=== PATIENT | male | born 1945 | race Caucasian/White ===

== ENCOUNTER → 2016-05-07 | Outpatient (CLI) | payer MEDICARE, MEDICAID ==
[~2016-05-07] MED LIST: ALBU2.5V7 INH; BACL10TA PO; BUDE0.5A6 AEROSOL; CALC-52 PO; CHOL200026 PO; IPRA0.2S52 AEROSOL; LEVE500T9 PO; PRED20TA PO
--- NOTE | 2016-05-07 11:05 | STEVAL ---
Eval Subjective and History Date/Time of Eval DATE: 05/07/16 TIME: 10:35 Medical Diagnosis MODIFIED BARIUM SWALLOW STUDY FOR OTHER DYSPHAGIA R13.19 Treatment Order: Assessment, Dev./Imp. tx plan Orientations: x 3, Cooperative Primary Complaint: OTHER DYSPHAGIA R13.19 Pain: No Date of Onset of Primary Com: 05/07/2016 Prior History of This Problem: Yes (THE LAST THREE MONTHS) Patient's Goals: "TO FIGURE OUT WHY I CAN'T GET MY MUCOUS OUT" Significant Past Medical Hx: PMH OBTAINED FROM PATIENTS VERBAL REPORT. HE STATES THAT HE HAS HX OF EMPHYSEMA WHICH REQUIRES 02 PER NC. HE STATES HE IS TYPICALLY ON 3L. PATIENT STATES HE HAS COPD. DENIES T2DM, HEART PROBLEMS, HTN, NEUROLOGICAL IMPAIRMENTS Medical History Form Reviewed: Yes Residence Type: Private home/apartment Lives With: Spouse Prior Functional Status: PATIENT REPORTS THAT HE IS HAVING "TROUBLE SWALLOWING". REPORTS THAT THREE MONTHS AGO HIS INHALERS STOPPED WORKING AND "IT'S ALL BEEN DOWN HILL SINCE THEN." PATIENT REPORTS THAT HE IS HAVING DIFFICULTY TAKING MEDICATIONS THEY GET "STUCK" AND ALSO REPORTS THAT THE ENT STATES HIS VOCAL CORDS ARE "INFLAMED". PATIENTS LARGEST C/O IS THAT HE IS UNABLE TO COUGH UP MUCOUS. Education Comment AUTHORIZATION REPRESENTATIVE EDUCATED PATIENT ON REASONING OF EVALUATION, AND FOLLOWING THE RESULTS. PATIENT VERBALIZED UNDERSTANDING. Subjective and History Comment: PREETHI TRANSFERRED HIMSELF TO THE IMAGING ROOM AND INTO THE HAUSTED CHAIR INDEPENDENTLY. HE WAS ON 1L OF 02 PER NC- CONTINUOUSLY. HE HAD NO ACUTE C/O PAIN OR FATIGUE. Modified Barium Swallow Lateral View Oral Phase : Lateral View Food Presentation: Thin Liquid via Spoon, Thin Liquid via Straw , Barium Tablet, Solid- Vlad Cracker, Syrup liquid via cup, Pudding via spoon Number Presentations Lat View: 3 Labial Closure: No Impairment (WFL) Bolus Formation Pooling L/R: No Impairment (WFL) Bolus Formation Under Tongue: No Impairment (WFL) Bolus Formation Scattered Loss: No Impairment (WFL) Mastication Rotary Chew: No Impairment (WFL) Mastication Munching: No Impairment (WFL) Mastication Laterization: No Impairment (WFL) A/P Lingual Propulsion Spills: No Impairment (WFL) A/P Lingual Propulsion Delay: No Impairment (WFL) Lingual Movement: No Impairment (WFL) Residue Clearing: No Impairment (WFL) Premature Swallow: No Impairment (WFL) Other Oral Phase Observations: PATIENTS ORAL PHASE OF SWALLOW FUNCTIONAL. PATIENT DEMONSTRATED ABILITY TO FORM A COHESIVE BOLUS FOR ORAL TRANSIT. HE HAD NO PREMATURE SWALLOW. TRACE AMOUNTS OF ORAL RESIDUE WERE PRESENT IN THE POSTERIOR PORTION OF THE ORAL CAVITY AFTER THE SWALLOW. Swallow Response Delay: No Impairment (WFL) Base of Tongue: Minimal Impairment Epiglottic Coverage: No Impairment (WFL) Laryngeal Elevation: Minimal Impairment Vallecular Retention Clearing: No Impairment (WFL) Pharyn.Wall Residue Clearing: No Impairment (WFL) Pyriform Sinus Clearing: No Impairment (WFL) Other Pharyngeal Phase Observ.: PATIENTS PHARYNGEAL PHASE OF SWALLOW MINIMALLY IMPAIRED. PATIENT HAD NO PENETRATION OR ASPIRATION DURING THIS STUDY. HE EXHIBITED PROMPT SWALLOW RESPONSE ON ALL CONSISTENCIES. PATIENT WITH FAIR BASE OF TONGUE MOVEMENT. PATIENT WITH SIGNIFICANT RETROFLEXTION OF HIS EPIGLOTTIS- HOWEVER, INVERSION WAS FAIR DURING SWALLOW. TRACE AMOUNTS OF RESIDUE WERE APPRECIATED ON THE POSTERIOR PHARYNGEAL WALL. A/P Test Performed 1 A/P View Food Presentation: Thin Liquid via Spoon, Solid- Vlad Cracker, Syrup liquid via spoon, Pudding via spoon A/P View Vocal Cord Function: Fair Assessment/Plan of Care Speech Therapy Impressions: PATIENT PRESENTS WITH MINIMAL PHARYNGEAL PHASE DYSPHAGIA. ST Treatment Plan: Evaluation Only ST Treatment Plan Frequency: N/A Treatment Plan Duration: N/A Plan of Care Comment RECOMMENDATIONS: 1) DIET MODIFICATION TO REG/REG TOLERATED - RECOMMEND MEDICATION ONE AT A TIME, DRINK BEFORE AND AFTER 2) F/U WITH ENT, POSSIBLE VOCAL CORD DYSFUNCTION Date of Visit 05/07/16 Time Visit Began: 10:00 Time Visit Ended: 10:30 ST Assess/Plan of Care: ST Treatment Charge: MBSS Minutes of Individual Therapy: 30 GCODE Swallowing: G8996 - current Severity Modifier: CI - 1-19% Swallowing: G8997 - goal Severity Modifier: CI - 1-19% Swallowing: G8998 - d/c Severity Modifier: CI - 1-19% BRYAN LONG MS CCC-AUTHORIZATION REPRESENTATIVE May 07, 2016 10:38
--- NOTE | 2016-05-07 12:58 | DI ---
Indication:ITS.REASON: R13.19 DYSPHAGIA Procedure:MODIFIED BAR. SWALLOW STUDY MODIFIED BAR. SWALLOW STUDY: Videofluoroscopy was performed in conjunction with a in store marketing representative from speech pathology and a separate report and recommendations will be provided. Varying gradations of barium from thin to solid were administered. There was no aspiration noted with any of the consistencies. On the AP view the bolus showed no obvious preference for either side. Impression: No aspiration seen. Please see the speech pathology report for additional details and recommendations. Fluoroscopy dose: 7.20 mGy (Cumulative air kerma) Fitz Carrera RPA/WILL performed this under my direct supervision. .
== END ==
LOC: IMA 09:51
PROVIDERS: ATTEND Otolaryngology
DX: R13.19 Other dysphagia (principal)
CPT/HCPCS: 74230; 92611; G8996; G8997; G8998

== ENCOUNTER → 2016-06-11 | Outpatient (CLI) | payer MEDICARE, MEDICAID ==
--- NOTE | 2016-06-11 13:02 | DI ---
INDICATION: ITS.REASON: Z01.811 PREP RESPIRATORY EXAM PROCEDURE: CHEST 2-VIEWS UPRIGHT (PA \T\ LAT) Encounter: Initial Comparison: March 19, 2016 Findings: The lungs are stable in appearance without new focal airspace consolidation. Hyperinflation consistent with COPD. There is no pleural effusion or pneumothorax. Left [employer] shunt catheter tubing. The heart size, pulmonary vascularity and mediastinal contours are unchanged. IMPRESSION: Stable appearance of the chest without acute cardiopulmonary disease. .
== END ==
LOC: IMA 12:06
PROVIDERS: ATTEND Registered Nurse
DX: Z01.818 Encounter for other preprocedural examination (principal); Z98.2 Presence of cerebrospinal fluid drainage device